=== PATIENT | female | born 1940 | race Native Hawaiian/Other Pacific Islander ===

== ENCOUNTER 2017-10-18 10:25 | Inpatient (IN) | payer OTHER ==
[~2017-10-18] VITALS: Ht 170.2 cm; Wt 81.4 kg
[2017-10-18] VITALS (17 sets, daily range): BP systolic 105–139; BP diastolic 53–90; TEMP 98–98.9; Ht 170.2 cm; Wt 81.4 kg
[~2017-10-18 10:25] MED LIST: BENTYL10 MG PO; ESCITALOPRAM5 MG PO; FINGERSTIX; HUMALOG JU100 UNIT/M SC; INSU100P SC; MIRALAX3350 N1 PO; NYST100016 TOP; REQUIP1 MG PO; TIZA4TAB5 PO; TRAM50TA PO; TRAZ50TA36 PO; TRINTELLIX10 MG PO; XARELTO20 MG PO
[2017-10-18] MEDS ORDERED: PROTONIX20 MG PO (13:34)
[2017-10-18] MEDS ORDERED: METAMUCIL0.52 GM OR (13:36)
[2017-10-18] MEDS ORDERED: NOVOLOG SC (13:40)
[2017-10-18] MEDS ORDERED: ELIQUIS5 MG PO (13:42)
[2017-10-18] MEDS ORDERED: MULTIPLE PO (13:44)
[2017-10-18] MEDS ORDERED: ASCORBIC ACD500 MG PO (13:45)
[2017-10-18] MEDS ORDERED: ORAZINC220 MG PO (13:47)
[2017-10-18] MEDS ORDERED: 904272561 PO (13:49)
[2017-10-18] MEDS ORDERED: SILV1CRE EX (13:49)
[2017-10-18] MEDS ORDERED: LEXAPRO20 MG PO (13:52)
[2017-10-19] VITALS (12 sets, daily range): BP systolic 111–148; BP diastolic 49–70; TEMP 97.8–99.5
[2017-10-19 04:10] LABS: PLATELET COUNT 281 K/uL (152-353)
[2017-10-19 04:28] LABS: POTASSIUM 3.7 mmol/L (3.6-5.2)
[2017-10-20] VITALS (13 sets, daily range): BP systolic 112–183; BP diastolic 65–97; TEMP 97–98
[2017-10-20 07:47] LABS: PLATELET COUNT 288 K/uL (152-353)
[2017-10-20 08:19] LABS: POTASSIUM 3.7 mmol/L (3.6-5.2)
[2017-10-20] MEDS ORDERED: ROPINIROLE0.5 MG PO (09:25)
== END 2017-10-20 14:05 | DRG 189 ==
LOC: ICU 10:25
PROVIDERS: ADMIT Emergency Medicine
DX: J96.20 Acute and chronic respiratory failure, unspecified whether with hypoxia or hypercapnia (principal); I48.92 Unspecified atrial flutter; I48.91 Unspecified atrial fibrillation; E11.9 Type 2 diabetes mellitus without complications; D64.89 Other specified anemias; F41.8 Other specified anxiety disorders; L89.152 Pressure ulcer of sacral region, stage 2
CPT/HCPCS: 36415; 80053; 82272; 82962; 85027; 86850; 86900; 86901; 86922; 94760; J2060; P9016